=== PATIENT | female | born 1970 | race Caucasian/White ===

== ENCOUNTER 2020-06-03 21:18 | Outpatient (CLI) | payer SELFPAY ==
[2020-06-03 21:30] VITALS: RESP 18; TEMP 36.8
[2020-06-03 22:00] VITALS: BMI 22.8
[2020-06-03 22:57] VITALS: BP 138/85; PULSE 100
[2020-06-03 23:20] VITALS: BP 122/73; PULSE 91
--- NOTE | 2020-06-04 04:44 | PC.NURSE ---
Patient admits to drinking alcohol tonight and throughout . [facility]'s department reports that patient had been arrested earlier this evening for suspicion of driving while intoxicated.
--- NOTE | 2020-06-04 08:33 | PC.NURSE ---
PATIENT WAS DISCHARGED AT 06/03/20 AT 2345 - DUE TO NEED TO CHART, CHART WAS TRANSFERRED TO [facility] FOR TIME BEING. DISCHARGE NOTE LOOKS LIKE 0833 TODAY, BUT THAT IS INCORRECT. COMPUTER WOULD NOT LET CHANGE.
--- NOTE | 2020-06-04 08:34 | PC.NURSE ---
PATIENT ADMITTED TO THIS PIPE MANU[employer]CTURE SUPERVISOR THAT SHE HAD DRANK TWO BEERS TODAY AND STATED THAT SHE HAS DRANK OCCASIONALLY THROUGHOUT THIS ENTIRE . PATIENT ALSO STATED TO NURSE THAT HER OB PHYSICIAN IS IN [place], [place] AND THAT SHE HAS BEEN RECEIVING ROUTINE CARE. PATIENT WAS TAKEN FROM [facility] DEPARTMENT BY EMS FOR CONTRACTIONS AND BROUGHT TO [facility] OB DEPT. WHEN PT ARRIVED, STEVEN ESPINAL CALLED [facility] DEPT TO INQUIRE WHETHER PATIENT WAS ARRESTED OR WAS FREE TO GO FROM [facility] STANDPOINT. VIRAL FROM [facility] DEPT STATED THAT SHE WAS NOT ARRESTED AND WAS FREE TO GO IF WE SHOULD CHOOSE TO SEND HER HOME. VIRAL STATED TO THIS PIPE MANUFACTURE SUPERVISOR THAT PATIENT WAS ARRESTED FOR A DRIVING UNDER THE INFLUENCE THIS EVENING (Sunday06/03/20) AND ASKED THAT WE DRAW A BLOOD ALCOHOL LEVEL ON HER. THIS RN EXPLAINED TO VIRAL THAT WE CANNOT DO THAT BECAUSE WE DO NOT HAVE A WARRANT TO DRAW THE LAB, A PHYSICIAN'S ORDER TO DRAW IT, AND WE ALSO CANNOT REPORT THE RESULT TO THEM DUE TO PATIENT NOT BEING AN INMATE AND HIPAA LAWS APPLYING. HE UNDERSTOOD. AT 2300 - THIS RN NOTIFIED THE [facility] DEPT AGAIN THAT WE WOULD BE DISCHARGING PATIENT HOME AND DID NOT DRAW A PAMELA LEVEL PER THEIR REQUEST DUE TO PHYSICIAN NOT SEEING A MEDICAL NEED TO DRAW, AND US NOT HAVING A WARRANT TO DRAW. VIRAL STATED HE UNDERSTOOD AND THAT HIS DEPUTY TOLD HIM THEY WOULD PURSUE OTHER ROUTES IN HER CASE . PT WAS UPDATED AND TOLD THAT SHE WAS ALLOWED TO BE DISCHARGED HOME AND FOLLOW UP WITH THE OB PHYSICIAN. HER MOTHER WAS HERE AND WAS HER DESIGNATED SUPERVISOR DRYING AND WINDING.
== END 2020-06-04 08:33 | disposition home or self-care (01) ==
LOC: OPOB 21:34 → OBGYN 23:14
PROVIDERS: Visit Provider Family Medicine
DX: O26.899 Other specified pregnancy related conditions, unspecified trimester (principal); Z3A.00 Weeks of gestation of pregnancy not specified; R10.9 Unspecified abdominal pain
CPT/HCPCS: 59025; 99211